=== PATIENT | female | born 1995 | race Caucasian/White ===

== ENCOUNTER 2017-04-15 00:02 | Emergency (ER) | payer OTHER ==
[~2017-04-15] VITALS: Ht 162.6 cm; Wt 64.7 kg
[2017-04-15 00:04] VITALS: TEMP 36.8; Ht 162.6 cm; Wt 64.7 kg
--- NOTE | 2017-04-15 00:46 | EMERGENCY ROOM VISIT NOTE ---
History Report prepared by Ottoniel: Isai Echeverria Under the Supervision of: Dr. Mendez García D.O. First contact with patient: 00:18 Chief Complaint: MENTAL HEALTH EVALUATION Stated Complaint: MENTAL HEALTH - CUTS ON ARMS History of Present Illness The patient is a 21 year old female who presents to the Emergency Room following a self-inflicted "cutting" episode that occurred shortly prior to arrival. The patient was brought into the department by an ex-boyfriend who met with her this evening after she had cut herself. The patient states that she is lonely, but denies being suicidal. She cut herself because she was "depressed and did not feel like anybody cares about her." The patient's ex-boyfriend added that they broke up around a month ago after dating for several years. This was the first time he noticed the cutting. She has never made any suicidal remarks to him but did tell him that no one would care if she . The patient has an appointment scheduled with [facility] tomorrow. She denies any drug abuse. Source of History: patient, spouse/significant other Onset: Shortly TRAVEL CLERK Position: arm (bilateral) Quality: other (Cutting) Note: Denies suicidal ideation. Review of Systems See HPI for pertinent positives and negatives. A total of ten systems were reviewed and were otherwise negative. Past Medical & Surgical No pertinent discussed. Family History No pertinent discussed. Social History Smoking Status: Never Smoker Marital Status: single Housing Status: lives alone Occupation Status: [employer] student Physical Exam Vital Signs Date Time Temp Pulse Resp B/P (MAP) Pulse Ox O2 Delivery O2 Flow Rate FiO2 04/15/17 00:04 36.8 110 18 163/106 98 Room Air Physical Exam GENERAL: Awake, alert, well-appearing, in no distress HENT: Normocephalic, atraumatic. Oropharynx unremarkable. EYES: Normal conjunctiva. Sclera non-icteric. NECK: Supple. No nuchal rigidity. FROM. No JVD. RESPIRATORY: Clear to auscultation. CARDIAC: Regular rate, normal rhythm. Extremities warm and well perfused. Pulses equal. ABDOMEN: Soft, non-distended. No tenderness to palpation. No rebound or guarding. No masses. RECTAL: Deferred. MUSCULOSKELETAL: Chest examination reveals no tenderness. The back is symmetrical on inspection without obvious abnormality. There is no CVA tenderness to palpation. No joint edema. LOWER EXTREMITIES: Calves are equal size bilaterally and non-tender. No edema. No discoloration. NEURO: Normal sensorium. No sensory or motor deficits noted. SKIN: There are multiple bilateral superficial forarm lacerations. No rash or jaundice noted. Medical Decision & Procedures ED Course 0021: The patient was evaluated in room A8. A complete history and physical exam was performed. 0038: After discussion with the patient and the psychiatric case liaison we believe the patient is safe to be sent home. The patient will be discharged. Medical Decision Differential diagnosis: Etiologies such as mood disorder, infection, hypoglycemia, electrolyte abnormalities, cardiac sources, intracerebral event, toxicologic, neurologic, as well as others were entertained. Patient states that she is lonely and depressed. Patient does have follow-up tomorrow with a psychiatric counselor. Patient contracts for safety. Patient was evaluated with the crisis counselor bedside. We've also discussed the evaluation with the patient's ex-boyfriend who is at bedside. After evaluation I believe that the patient be safely discharged with follow-up in the morning with the crisis counselor Impression Primary Impression: Depression Additional Impressions: Lacerations of multiple sites of right arm Lacerations of multiple sites of left arm Scribe Attestation The scribe's documentation has been prepared under my direction and personally reviewed by me in its entirety. I confirm that the note above accurately reflects all work, treatment, procedures, and medical decision making performed by me. Departure Information Dispostion Home / Self-Care Referrals No Doctor, Assigned (PCP) Patient Instructions ED Depression, [facility] Additional Instructions Follow-up with her crisis counselor as scheduled tomorrow morning. Return for worsening symptoms or any concerns Problem Qualifiers
[2017-04-15 01:04] VITALS: BP 120/71; PULSE 78; O2SAT 98
== END 2017-04-15 01:05 | disposition home or self-care (01) ==
LOC: C.EDB 00:04 → C.EDA 01:05
DX: F32.9 Major depressive disorder, single episode, unspecified (principal); S41.111A Laceration without foreign body of right upper arm, initial encounter; S41.112A Laceration without foreign body of left upper arm, initial encounter; X78.9XXA Intentional self-harm by unspecified sharp object, initial encounter